=== PATIENT | male | born 1965 | race Two or more races ===

== ENCOUNTER → 2018-03-10 | Outpatient (CLI) | payer BC | END | disposition home or self-care (01) | LOC: KCIC US 07:46 | DX: K76.0 Fatty (change of) liver, not elsewhere classified (principal) | CPT/HCPCS: 76705 ==

== ENCOUNTER 2020-11-02 09:12 | Day surgery (SDC) | payer BC ==
[~2020-11-02] VITALS: Ht 172.7 cm; Wt 95.5 kg
[~2020-11-02 09:12] MED LIST: FLUT1DIS3 IH; HYDROmorphone 2 MG/ML VIAL IVP PRN; IV RINGERS,LACTATED 1000ML 1,000 ML IV SCH; MORPHINE SULFATE 2 MG/ML VIAL. IVP PRN; PROCHLORPERAZINE 10 MG/2 ML VIAL. IVP PRN; SULF1TAB24 PO; fentaNYL PF VIAL 100 MCG/2 ML VIAL IVP PRN
[2020-11-02] MEDS ORDERED: LIDOCAINE 2%/EPI 1:100,000 20 ML VIAL. IJ ONE (10:45)
[2020-11-02] MEDS ORDERED: fentaNYL PF VIAL 100 MCG/2 ML VIAL ONE ×3 (10:52→11:51)
[2020-11-02] MEDS ORDERED: SEVOFLURANE 16 TO 30 MINUTES. IH ONE (11:01)
[2020-11-02] MEDS ORDERED: LIDOCAINE 2% PF 5 ML VIAL. ONE (11:01)
[2020-11-02] MEDS ORDERED: PHENYLEPHRINE in 0.9% NACL PF 1 MG/10 ML SYRINGE. IV ONE (11:01)
[2020-11-02] MEDS ORDERED: ONDANSETRON PF 4 MG/2 ML VIAL. ONE (11:02)
[2020-11-02] MEDS ORDERED: PROPOFOL 10 MG/ML (20ML) VIAL. IV ONE (11:02)
[2020-11-02] MEDS ORDERED: DEXAMETHASONE SOD PHOS 4 MG/ML VIAL ONE (11:16)
--- NOTE | 2020-11-02 11:54 | PDOC4 ---
Operative Note Operative Note Operative Note: Preoperative Diagnosis: Left chest abscess Postoperative Diagnosis: Same Procedure: Incision and drainage, debridement left chest abscess, 6.5 X 5 cm (32.5 cm2), extended to deep subcutaneous tissue Surgeon: Abel Anesthesia: Gen EBL: 20 ml Specimen: cultures, left chest specimen 6.5 X 5 cm Drains: None Complications: None Indication: The patient is a 54-year-old male who presented as an outpatient with a left chest abscess. Examination is suggestive of a possible chronic infection of a large sebaceous cyst. We recommend surgical invention with incision and drainage and possible debridement. The risks of surgery were discussed which include bleeding, infection, recurrence, pain, scar tissue, anesthetic risk, potential need for additional surgery procedure. He understands and would like to proceed. Description: The patient was taken to the operating room and placed supine on the operating table. General anesthesia was performed. The left chest was prepped with Betadine draped in a standard surgical manner. The overlying skin was devitalized with several punctate ulcers. With a hemostat one opening was spread apart with return of purulent fluid. Cultures of this were obtained and sent to microbiology. An elliptical incision was made around the involved skin using a scalpel. Sharp dissection was used for excision of the involved tissue which seemed to represent a probable large sebaceous cyst that became secondarily infected. The process extended deep into the subcutaneous tissues to the level of the muscle. Full excision of the involved tissue was then performed and the specimen measured 6.5 x 5 cm. The specimen was sent to pathology. Hemostasis was achieved with cautery. The cavity was irrigated with sterile saline and packed with sterile gauze. A dressing was then applied. The patient tolerated procedure well and was sent to the recovery room in stable condition. At the end of the case all counts were correct. CARMINE MENDES MD Nov 02, 2020 11:54
[2020-11-02] MEDS: fentaNYL PF VIAL 100 MCG/2 ML VIAL IVP PRN ×2 (11:55→12:30)
--- NOTE | 2020-11-02 11:57 | DISCH ---
DISCHARGE INSTRUCTIONS Condition on Discharge Condition on Discharge: Unstable Activity After Discharge Activity Instructions for Disc: Activity as tolerated Diet after Discharge Diet after Discharge: Regular Wound Incision Care Wound/Incision Care: Other, see below (keep dressing clean and dry) Follow-Up Follow up with: Wound care center at [place], Saturday11/03/20 at 12:30 p.m. CARMINE MENDES MD Nov 02, 2020 11:56
[2020-11-02] MEDS ORDERED: OXYC1TAB15 PO (12:03)
[2020-11-02 12:45] VITALS: BP 139/90
[2020-11-02] MEDS ORDERED: oxyCODONE/APAP 5/325 1 TAB TABLET PO ONE (12:45)
--- NOTE | 2020-11-04 17:07 | PATHOLOGY ---
[facility] Accession Number: [id number] . 01 Material submitted: . chest - LEFT CHEST ABSCESS. Modifiers: left . 01 Clinical history: . LEFT CHEST ABSCESS . 02 Diagnosis: Skin and subcutaneous tissue, left chest abscess incision and drainage: - Ruptured epidermal inclusion cyst with acute and chronic inflammation, abscess, and focal foreign body giant cell reaction. (JPM:[facility] 11/04/2020) [facility] 11/04/2020 1425 Local . 02 Comment: There is no evidence of malignancy. (JP:[facility] 11/04/2020) . 02 Electronically signed: . Bud Cazares MD, Pathologist NPI- [id number] . 01 Gross description: . The specimen is received in formalin, labeled "Bunny Schultz, left chest abscess". Received is a segment of yellow-merida fibroadipose tissue with attached pale merida skin measuring 4.3 x 4.3 x 3.2 cm in greatest dimensions. Sectioning reveals bright yellow, lobulated cut surfaces throughout with no grossly distinct nodules or lesions. The specimen is submitted representatively in cassettes A1 through A3. ([facility]; 11/03/2020) QA/QAC 11/03/2020 1512 Local . 02 Pathologist provided ICD-10: L72.0, L98.9 . 02 CPT . 181509 Specimen Comment: A courtesy copy of this report has been sent to [phone] Specimen Comment: Report sent to / Performed at: 01 [facility] [address], [place], [place] [id number] MD Javid Veloz MD Phone: [phone] Performed at: 02 [facility] [address], [place] [id number] MD Bud Cazares MD Phone: [phone]
== END 2020-11-02 13:08 | disposition home or self-care (01) ==
LOC: SURG 09:12
PROVIDERS: ATTEND Surgery
DX: L02.213 Cutaneous abscess of chest wall (principal); J86.9 Pyothorax without fistula; I10 Essential (primary) hypertension; E78.00 Pure hypercholesterolemia, unspecified; J45.909 Unspecified asthma, uncomplicated; E66.9 Obesity, unspecified; Z20.822 Contact with and (suspected) exposure to COVID-19; Z79.899 Other long term (current) drug therapy; Z98.890 Other specified postprocedural states
CPT/HCPCS: 10060; 87071; 87075; 87076; 87426; 88304; A4461; C9803; J0690; J1100; J2370; J2405; J2704; J3010; U0003; J3490